=== PATIENT | male | born 1955 | race Caucasian/White ===

== ENCOUNTER 2016-09-30 18:48 | Inpatient (IN) | payer MEDICARE ==
[2016-09-30 18:49] VITALS: BMI 24.3
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
[2016-09-30] MEDS ORDERED: HYDROmorphone 0.5 mg/0.5 ml ISec IVP STA ×2 (19:48→22:40)
[2016-09-30] MEDS ORDERED: HYDROmorphone 1 mg/ml ISec ONE ×2 (19:54→23:00)
[2016-09-30] MEDS ORDERED: Sodium Chloride 0.9% 1,000 ML ONE (19:54)
[2016-09-30 20:05] LABS: BASO % 0.5 % (0.0-2.0); EOS # 0.5 K/uL (0.0-0.7); EOS % 8.6 % (0.0-4.0); HEMATOCRIT 43.2 % (35.0-51.0); LYMPH # 1.6 K/uL (1.0-4.3); LYMPH % 24.7 % (20.0-40.0); MEAN CELL VOLUME 89.3 fL (80.0-94.0); MEAN CORPUSCULAR HEMOGLOBIN 29.8 pg (27.0-31.0); MEAN CORPUSCULAR HGB CONC 33.3 g/dL (33.0-37.0); MEAN PLATELET VOLUME 8.2 fL (7.2-11.7); MONO # 0.7 K/uL (0.0-0.8); MONO % 10.5 % (0.0-10.0); RED CELL DISTRIBUTION WIDTH 14.9 % (11.5-14.5); WHITE BLOOD COUNT 6.3 K/uL (4.8-10.8)
[2016-09-30] MEDS: Sodium Chloride 0.9% 1,000 ML IV SCH (20:05)
[2016-09-30 20:12] LABS: CHLORIDE 99 mmol/L (98-107); POTASSIUM 3.9 mmol/L (3.6-5.2); SODIUM 138 mmol/L (132-148)
[2016-09-30 20:15] LABS: BLOOD UREA NITROGEN 13 mg/dL (9-20); CARBON DIOXIDE 25 mmol/L (22-30); GFR AFRICAN-AMERICAN > 60
[2016-09-30 20:16] LABS: CALCIUM 8.8 mg/dl (8.6-10.4); GLUCOSE,RANDOM 110 mg/dL (75-110)
[2016-09-30 20:35] LABS: VENOUS BLOOD GAS BASE EXCESS 1.7 mmol/L (0.0-2.0); VENOUS BLOOD GAS PCO2 45 mmHg (40-60); VENOUS BLOOD PH 7.39 (7.32-7.43)
[2016-09-30] MEDS ORDERED: Iodixanol 320 MG/ML 100 ML BOTTLE IV ONE ×2 (20:42→21:04)
--- NOTE | 2016-09-30 22:20 | CT ---
EXAM: CT Right Lower Extremity With Intravenous Contrast, Femur. CLINICAL HISTORY: 60 years old, male; Pain; Other: Femur; Prior surgery; Additional info: R thigh pain post thigh RO abscess TECHNIQUE: Axial computed tomography images of the right femur with intravenous contrast. This CT exam was performed using one or more of the following dose reduction techniques: automated exposure control, adjustment of the mA and/or kV according to patient size, and/or use of iterative reconstruction technique. Coronal and sagittal reformatted images were created and reviewed. CONTRAST: 100 mL of [id number] administered intravenously. COMPARISON: There are no prior studies for comparison.Exam Date/Time: 09/30/2016 7:47 PM FINDINGS: Bones/joints: There are degenerative changes in the lower lumbar spine. There is sclerosis about the right sacroiliac joint. There are degenerative changes in the segundo. There are old right ischial and pubic fractures. There is remote amputation of the right femur resection at the proximal diaphysis. There is heterotopic ossification at the amputation site greatest medially. There are multiple surgical clips. There are 2 small areas of enhancement posterior to the femur at the amputation site. More proximal focus measures 5.8 x 4.9 mm, image 19 series 604, image 64 series 605. Distal focus measures 7.5 x 5.71 m, image 12 series 604, image 64 series 605. Soft tissues: There is edema in the skin distal to the stone. There may be an area of ulceration. Vasculature: There are vascular calcifications. Other findings: There is a nonobstructive gas pattern in the pelvis. There is diverticulosis. Urinary bladder is partially distended. Seminal vesicles and prostate are unremarkable. IMPRESSION: Right femoral amputation; too small enhancing foci adjacent to the amputation site may represent small abscesses
[2016-09-30] MEDS ORDERED: Piperacillin/Tazobact 3.375 gm 100 ML IV STA (22:40)
[2016-09-30] MEDS ORDERED: Piperacillin/Tazobact 3.375 gm 100 ML IVPB ONE (23:01)
[2016-10-01] MEDS: Sodium Chloride 0.9% 1,000 ML IV SCH ×3 (05:25→19:21)
[2016-10-01] MEDS: HYDROmorphone 1 mg/ml ISec IVP PRN ×4 (06:21→21:47)
--- NOTE | 2016-10-01 09:30 | CP.PCM.PN ---
Objective - Vital Signs/Intake and Output Vital Signs (last 24 hours): Temp Pulse Resp BP Pulse Ox 97.9 F 66 20 168/94 H 96 10/01/16 08:00 10/01/16 08:00 10/01/16 08:00 10/01/16 08:00 10/01/16 08:00 - Medications Medications: Current Medications Hydromorphone HCl (Dilaudid) 1 mg IVP Q4H PRN PRN Reason: Pain, severe (8-10) Stop: 10/01/16 13:49 Last Admin: 10/01/16 06:21 Dose: 1 mg Sodium Chloride (Sodium Chloride 0.9%) 1,000 mls @ 100 mls/hr IV .Q10H [facility] Last Admin: 10/01/16 05:25 Dose: 100 mls/hr Influenza Virus Vaccine (Afluria) 45 mcg IM .ONCE ONE Stop: 10/03/16 14:01 Pneumococcal Polyvalent Vaccine (Pneumovax 23 Vaccine) 0.5 ml IM .ONCE ONE Stop: 10/03/16 14:01
[2016-10-01] MEDS ORDERED: Oxycodone/Acetaminophen 5/325 mg Tab PO PRN (11:43)
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
--- NOTE | 2016-10-01 12:48 | RAD ---
PROCEDURE: Right femur HISTORY: pain ho r aka COMPARISON: Not available TECHNIQUE: Two views of the right femur are submitted. FINDINGS: The patient is status post right [id number] amputation. There is no acute osseous fracture. The hip is grossly intact. IMPRESSION: No acute fracture. Status post right above knee amputation.
[2016-10-01] MEDS: Enoxaparin 40 mg Syringe SC SCH (13:01)
[2016-10-01] MEDS: Piperacill/Tazo 3.375gm in Dex 50 ML IVPB SCH ×2 (13:09→19:22)
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
[2016-10-01] MEDS: (Novolin R) Insulin Human Regular 100 units/ml vial SC SCH ×2 (17:44→22:13)
[2016-10-02] MEDS: Piperacill/Tazo 3.375gm in Dex 50 ML IVPB SCH ×4 (05:22→18:40)
[2016-10-02] MEDS: (Novolin R) Insulin Human Regular 100 units/ml vial SC SCH ×4 (08:10→21:42)
[2016-10-02 08:11] LABS: BASO % 0.6 % (0.0-2.0); EOS # 0.7 K/uL (0.0-0.7); EOS % 10.6 % (0.0-4.0); HEMATOCRIT 41.9 % (35.0-51.0); LYMPH # 1.2 K/uL (1.0-4.3); LYMPH % 18.6 % (20.0-40.0); MEAN CORPUSCULAR HEMOGLOBIN 30.6 pg (27.0-31.0); MEAN CORPUSCULAR HGB CONC 34.4 g/dL (33.0-37.0); MEAN PLATELET VOLUME 8.9 fL (7.2-11.7); MONO # 0.6 K/uL (0.0-0.8); MONO % 9.5 % (0.0-10.0); RED CELL DISTRIBUTION WIDTH 14.9 % (11.5-14.5); WHITE BLOOD COUNT 6.4 K/uL (4.8-10.8)
[2016-10-02 08:21] LABS: CHLORIDE 99 mmol/L (98-107); POTASSIUM 3.7 mmol/L (3.6-5.2); SODIUM 138 mmol/L (132-148)
[2016-10-02 08:23] LABS: ALB/GLOB RATIO 0.9 (1.0-2.1); BILIRUBIN,TOTAL 0.8 mg/dL (0.2-1.3); CARBON DIOXIDE 25 mmol/L (22-30); CHOLESTEROL 147 mg/dL (0-199); GFR AFRICAN-AMERICAN > 60; TOTAL PROTEIN 7.5 g/dL (6.3-8.3)
[2016-10-02 08:24] LABS: ALKALINE PHOSPHATASE 93 U/L (38-126); ALT/SGPT 58 U/L (21-72); AST/SGOT 67 U/L (17-59); BLOOD UREA NITROGEN 10 mg/dL (9-20); CALCIUM 8.8 mg/dl (8.6-10.4); GLUCOSE,RANDOM 90 mg/dL (75-110)
[2016-10-02] MEDS: Enoxaparin 40 mg Syringe SC SCH (10:15)
--- NOTE | 2016-10-02 12:09 | CP.PCM.PN ---
Subjective - Date & Time of Evaluation Date of Evaluation: 10/02/16 Time of Evaluation: 12:00 - Subjective Subjective: Seen by surgery, no need for drainage of abscess, on IV antibiotic follow-up with infectious disease Objective - Vital Signs/Intake and Output Vital Signs (last 24 hours): Temp Pulse Resp BP Pulse Ox 98.8 F 81 16 131/94 H 96 10/02/16 08:08 10/02/16 08:08 10/02/16 08:08 10/02/16 08:08 10/02/16 08:08 Intake and Output: 10/02/16 10/02/16 06:59 18:59 Intake Total 1890 Balance 1890 - Medications Medications: Current Medications Acetaminophen (Tylenol 325mg Tab) 650 mg PO Q6 PRN PRN Reason: Fever >100.4 F Docusate Sodium (Colace) 100 mg PO BID [facility] Last Admin: 10/02/16 10:16 Dose: 100 mg Enoxaparin Sodium (Lovenox) 40 mg SC DAILY [facility] Last Admin: 10/02/16 10:15 Dose: 40 mg Hydromorphone HCl (Dilaudid) 3 mg IVP Q6H PRN PRN Reason: Pain, severe (8-10) Last Admin: 10/02/16 10:15 Dose: 3 mg Sodium Chloride (Sodium Chloride 0.9%) 1,000 mls @ 100 mls/hr IV .Q10H [facility] Last Admin: 10/01/16 19:21 Dose: 100 mls/hr Piperacillin Sod/Tazobactam Sod (Zosyn 3.375 Gm Iv Premix) 50 mls @ 100 mls/hr IVPB Q6H [facility] Last Admin: 10/02/16 05:22 Dose: 100 mls/hr Influenza Virus Vaccine (Afluria) 45 mcg IM .ONCE ONE Stop: 10/03/16 14:01 Insulin Human Regular (Novolin R) 0 unit SC ACHS [facility] PRN Reason: Protocol Last Admin: 10/02/16 08:10 Dose: Not Given Metformin HCl (Glucophage) 500 mg PO BID [facility] Last Admin: 10/02/16 10:16 Dose: 500 mg Nicotine (Nicoderm Cq) 1 patch TD DAILY [facility] Last Admin: 10/02/16 10:17 Dose: 1 patch Ondansetron HCl (Zofran Inj) 4 mg IVP Q6 PRN PRN Reason: Nausea/Vomiting Oxycodone/Acetaminophen (Percocet 5/325 Mg Tab) 1 tab PO Q4 PRN PRN Reason: Pain, moderate (4-7) Stop: 10/04/16 11:44 Pneumococcal Polyvalent Vaccine (Pneumovax 23 Vaccine) 0.5 ml IM .ONCE ONE Stop: 10/03/16 14:01 Sucralfate (Carafate Tab) 1 gm PO BID [facility] Last Admin: 10/02/16 10:16 Dose: 1 gm - Labs Labs: 10/02/16 08:02 10/02/16 08:02 - Constitutional Appears: Non-toxic - Head Exam Head Exam: ATRAUMATIC - Eye Exam Eye Exam: EOMI - ENT Exam ENT Exam: Mucous Membranes Moist - Neck Exam Neck Exam: absent: Lymphadenopathy, Thyromegaly - Respiratory Exam Respiratory Exam: Clear to Ausculation Bilateral. absent: Rales - Cardiovascular Exam Cardiovascular Exam: REGULAR RHYTHM, Murmur - GI/Abdominal Exam GI & Abdominal Exam: Normal Bowel Sounds. absent: Organomegaly - Rectal Exam Rectal Exam: Deferred - Extremities Exam Extremities Exam: Normal Capillary Refill. absent: Calf Tenderness - Neurological Exam Neurological Exam: Alert, Oriented x3 - Psychiatric Exam Psychiatric exam: Normal Mood - Skin Skin Exam: Dry Assessment and Plan (1) Abscess Status: Acute (2) Alcohol abuse Status: Chronic (3) Diabetes 1.5, managed as type 2 Status: Chronic
[2016-10-02] MEDS: Sodium Chloride 0.9% 1,000 ML IV SCH ×3 (12:20→21:42)
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
[2016-10-02 16:14] VITALS: RESP 20
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
[2016-10-03] MEDS: Piperacill/Tazo 3.375gm in Dex 50 ML IVPB SCH ×4 (00:22→18:11)
[2016-10-03] MEDS: Sodium Chloride 0.9% 1,000 ML IV SCH ×2 (07:24→08:25)
[2016-10-03] MEDS: (Novolin R) Insulin Human Regular 100 units/ml vial SC SCH ×4 (08:03→22:54)
[2016-10-03] MEDS: Enoxaparin 40 mg Syringe SC SCH (10:21)
--- NOTE | 2016-10-03 12:19 | CP.PCM.PN ---
Subjective - Date & Time of Evaluation Date of Evaluation: 10/03/16 Time of Evaluation: 09:00 - Subjective Subjective: less pain for mri if he can tolerate ? may need bone scan Objective - Vital Signs/Intake and Output Vital Signs (last 24 hours): Temp Pulse Resp BP Pulse Ox 98.2 F 73 20 148/87 97 10/03/16 07:00 10/03/16 07:00 10/03/16 07:00 10/03/16 07:00 10/03/16 07:00 Intake and Output: 10/03/16 10/03/16 06:59 18:59 Intake Total 1090 900 Balance 1090 900 - Medications Medications: Current Medications Acetaminophen (Tylenol 325mg Tab) 650 mg PO Q6 PRN PRN Reason: Fever >100.4 F Docusate Sodium (Colace) 100 mg PO BID [facility] Last Admin: 10/03/16 10:20 Dose: 100 mg Enoxaparin Sodium (Lovenox) 40 mg SC DAILY [facility] Last Admin: 10/03/16 10:21 Dose: 40 mg Hydromorphone HCl (Dilaudid) 3 mg IVP Q6H PRN PRN Reason: Pain, severe (8-10) Last Admin: 10/03/16 10:21 Dose: 3 mg Sodium Chloride (Sodium Chloride 0.9%) 1,000 mls @ 100 mls/hr IV .Q10H [facility] Last Admin: 10/03/16 08:25 Dose: Not Given Piperacillin Sod/Tazobactam Sod (Zosyn 3.375 Gm Iv Premix) 50 mls @ 100 mls/hr IVPB Q6H [facility] Last Admin: 10/03/16 11:47 Dose: 100 mls/hr Influenza Virus Vaccine (Afluria) 45 mcg IM .ONCE ONE Stop: 10/03/16 14:01 Insulin Human Regular (Novolin R) 0 unit SC ACHS [facility] PRN Reason: Protocol Last Admin: 10/03/16 12:07 Dose: Not Given Metformin HCl (Glucophage) 500 mg PO BID [facility] Last Admin: 10/03/16 10:20 Dose: 500 mg Nicotine (Nicoderm Cq) 1 patch TD DAILY [facility] Last Admin: 10/03/16 10:20 Dose: 1 patch Ondansetron HCl (Zofran Inj) 4 mg IVP Q6 PRN PRN Reason: Nausea/Vomiting Oxycodone/Acetaminophen (Percocet 5/325 Mg Tab) 1 tab PO Q4 PRN PRN Reason: Pain, moderate (4-7) Stop: 10/04/16 11:44 Pneumococcal Polyvalent Vaccine (Pneumovax 23 Vaccine) 0.5 ml IM .ONCE ONE Stop: 10/03/16 14:01 Sucralfate (Carafate Tab) 1 gm PO BID [facility] Last Admin: 10/03/16 10:20 Dose: 1 gm - Labs Labs: 10/02/16 08:02 10/02/16 08:02
--- NOTE | 2016-10-03 12:28 | CP.PCM.PN ---
Subjective - Date & Time of Evaluation Date of Evaluation: 10/03/16 Time of Evaluation: 12:00 - Subjective Subjective: Seen by infectious disease, MRI of the leg was ordered, on antibiotic, improved pain, seen by psych no need for detox Objective - Vital Signs/Intake and Output Vital Signs (last 24 hours): Temp Pulse Resp BP Pulse Ox 98.2 F 73 20 148/87 97 10/03/16 07:00 10/03/16 07:00 10/03/16 07:00 10/03/16 07:00 10/03/16 07:00 Intake and Output: 10/03/16 10/03/16 06:59 18:59 Intake Total 1090 900 Balance 1090 900 - Medications Medications: Current Medications Acetaminophen (Tylenol 325mg Tab) 650 mg PO Q6 PRN PRN Reason: Fever >100.4 F Docusate Sodium (Colace) 100 mg PO BID [facility] Last Admin: 10/03/16 10:20 Dose: 100 mg Enoxaparin Sodium (Lovenox) 40 mg SC DAILY [facility] Last Admin: 10/03/16 10:21 Dose: 40 mg Hydromorphone HCl (Dilaudid) 3 mg IVP Q6H PRN PRN Reason: Pain, severe (8-10) Last Admin: 10/03/16 10:21 Dose: 3 mg Sodium Chloride (Sodium Chloride 0.9%) 1,000 mls @ 100 mls/hr IV .Q10H [facility] Last Admin: 10/03/16 08:25 Dose: Not Given Piperacillin Sod/Tazobactam Sod (Zosyn 3.375 Gm Iv Premix) 50 mls @ 100 mls/hr IVPB Q6H [facility] Last Admin: 10/03/16 11:47 Dose: 100 mls/hr Influenza Virus Vaccine (Afluria) 45 mcg IM .ONCE ONE Stop: 10/03/16 14:01 Insulin Human Regular (Novolin R) 0 unit SC ACHS [facility] PRN Reason: Protocol Last Admin: 10/03/16 12:07 Dose: Not Given Ketoconazole (Nizoral) 1 gm TOP BID [facility] Metformin HCl (Glucophage) 500 mg PO BID [facility] Last Admin: 10/03/16 10:20 Dose: 500 mg Nicotine (Nicoderm Cq) 1 patch TD DAILY [facility] Last Admin: 10/03/16 10:20 Dose: 1 patch Ondansetron HCl (Zofran Inj) 4 mg IVP Q6 PRN PRN Reason: Nausea/Vomiting Oxycodone/Acetaminophen (Percocet 5/325 Mg Tab) 1 tab PO Q4 PRN PRN Reason: Pain, moderate (4-7) Stop: 10/04/16 11:44 Pneumococcal Polyvalent Vaccine (Pneumovax 23 Vaccine) 0.5 ml IM .ONCE ONE Stop: 10/03/16 14:01 Sucralfate (Carafate Tab) 1 gm PO BID [facility] Last Admin: 10/03/16 10:20 Dose: 1 gm - Labs Labs: 10/02/16 08:02 10/02/16 08:02 - Constitutional Appears: Non-toxic - Head Exam Head Exam: ATRAUMATIC - Eye Exam Eye Exam: EOMI - ENT Exam ENT Exam: Mucous Membranes Moist - Neck Exam Neck Exam: absent: Lymphadenopathy, Thyromegaly - Cardiovascular Exam Cardiovascular Exam: REGULAR RHYTHM. absent: Murmur - GI/Abdominal Exam GI & Abdominal Exam: Normal Bowel Sounds. absent: Organomegaly - Rectal Exam Rectal Exam: Deferred - Neurological Exam Neurological Exam: Alert, Oriented x3 - Psychiatric Exam Psychiatric exam: Normal Mood - Skin Skin Exam: Dry Assessment and Plan (1) Abscess Status: Acute (2) Alcohol abuse Status: Chronic (3) Diabetes 1.5, managed as type 2 Status: Chronic
[2016-10-03] MEDS ORDERED: Influenza Virus Vaccine 45 mcg/0.5 ml Syr IM ONE (14:00)
[2016-10-03] MEDS ORDERED: Pneumococcal 23-Valent Vaccine IM ONE (14:00)
[2016-10-04] MEDS: Piperacill/Tazo 3.375gm in Dex 50 ML IVPB SCH ×3 (00:21→14:03)
[2016-10-04 00:38] VITALS: O2SAT 95
[2016-10-04] MEDS: (Novolin R) Insulin Human Regular 100 units/ml vial SC SCH ×2 (07:37→12:10)
[2016-10-04] MEDS ORDERED: HYDROmorphone 1 mg/ml ISec IVP PRN (09:57)
[2016-10-04] MEDS: Enoxaparin 40 mg Syringe SC SCH (10:40)
--- NOTE | 2016-10-04 12:19 | CP.PCM.PN ---
Subjective - Date & Time of Evaluation Date of Evaluation: 10/04/16 Time of Evaluation: 12:00 - Subjective Subjective: Still with pain, awaiting MRI, follow-up with infectious disease Objective - Vital Signs/Intake and Output Vital Signs (last 24 hours): Temp Pulse Resp BP Pulse Ox 97.7 F 84 20 154/87 H 95 10/04/16 00:00 10/04/16 00:00 10/04/16 00:00 10/04/16 00:00 10/04/16 00:00 - Medications Medications: Current Medications Acetaminophen (Tylenol 325mg Tab) 650 mg PO Q6 PRN PRN Reason: Fever >100.4 F Docusate Sodium (Colace) 100 mg PO BID [facility] Last Admin: 10/04/16 10:41 Dose: 100 mg Enoxaparin Sodium (Lovenox) 40 mg SC DAILY [facility] Last Admin: 10/04/16 10:40 Dose: 40 mg Hydromorphone HCl (Dilaudid) 3 mg IVP Q6H PRN PRN Reason: Pain, severe (8-10) Piperacillin Sod/Tazobactam Sod (Zosyn 3.375 Gm Iv Premix) 50 mls @ 100 mls/hr IVPB Q6H [facility] Last Admin: 10/04/16 05:23 Dose: 100 mls/hr Insulin Human Regular (Novolin R) 0 unit SC ACHS [facility] PRN Reason: Protocol Last Admin: 10/04/16 12:10 Dose: Not Given Ketoconazole (Nizoral) 1 gm TOP BID [facility] Last Admin: 10/03/16 18:12 Dose: 1 applic Metformin HCl (Glucophage) 500 mg PO BID [facility] Last Admin: 10/04/16 10:41 Dose: 500 mg Nicotine (Nicoderm Cq) 1 patch TD DAILY [facility] Last Admin: 10/04/16 10:40 Dose: 1 patch Ondansetron HCl (Zofran Inj) 4 mg IVP Q6 PRN PRN Reason: Nausea/Vomiting Sucralfate (Carafate Tab) 1 gm PO BID [facility] Last Admin: 10/04/16 10:41 Dose: 1 gm - Labs Labs: 10/02/16 08:02 10/02/16 08:02 - Constitutional Appears: Non-toxic - Head Exam Head Exam: ATRAUMATIC - Eye Exam Eye Exam: EOMI - ENT Exam ENT Exam: Mucous Membranes Moist - Neck Exam Neck Exam: absent: Lymphadenopathy, Thyromegaly - Respiratory Exam Respiratory Exam: Clear to Ausculation Bilateral. absent: Rales - Cardiovascular Exam Cardiovascular Exam: REGULAR RHYTHM - GI/Abdominal Exam GI & Abdominal Exam: Normal Bowel Sounds. absent: Organomegaly - Rectal Exam Rectal Exam: Deferred - Extremities Exam Extremities Exam: Normal Capillary Refill. absent: Calf Tenderness, Tenderness - Neurological Exam Neurological Exam: Alert, Oriented x3 - Psychiatric Exam Psychiatric exam: Anxious, Normal Mood - Skin Skin Exam: Dry Assessment and Plan (1) Abscess Status: Acute (2) Alcohol abuse Status: Chronic (3) Diabetes 1.5, managed as type 2 Status: Chronic
--- NOTE | 2016-10-04 13:34 | NM ---
PROCEDURE: Three-phase bone scan HISTORY: Osteomyelitis suspected stump right lower extremity. COMPARISON: 09/30/2016 right femur radiographs. TECHNIQUE: Radionuclide dose: 24.3 Tc99m MDP Site of administration: Left upper extremity venous access Technique: Three-phase bone scan attention proximal right femur. FINDINGS: Flow component: Increased flow to the right thigh consistent with edematous changes on plain film radiographs. Blood pool component: No focal accumulation of radionuclide within the remaining right femur/stump region. Delayed images at 3:00: Mildly increased retention of radionuclide distal right femur IMPRESSION: Findings consistent with cellulitis without scintigraphic evidence of acute osseous process. Specifically no evidence of osteomyelitis proximal right femur/ surgical stump region.
--- NOTE | 2016-10-04 15:16 | PCM.PYCHPN ---
Psychiatric Progress Note - Psychiatric Progress Note Patient seen today, length of contact: 17 min Patient Chief Complaint: "I was very anxious" Problems Identified/Issues Discussed: The patient is seen, chart reviewed and case discussed. He was referred to today saying "I want to live like this" However, when seen by the commercial real estate underwriter he was in good spirits again and said that he had said that b/c he was in pain. He feels better now but sometimes feels down and anxious He says he will take a medication and he also asked for a note to help him keep his housing. he is clearly future oriented and denies all SI, SP etc. Support given Medication Change: Yes (add lexapro and prn ativan) Medical Record Reviewed: Yes Mental Status Examination - Cognitive Function Orientation: Person, Place, Situation, Time Memory: Intact Attention: WNL Concentration: Poor Association: WNL Fund of Knowledge: WNL - Mood Mood: Depressed (mild), Anxious - Affect Affect: Constricted - Speech Speech: Appropriate - Formal Thought Process Formal Thought Process: No Impairment - Suicidal Ideation Suicidal Ideation: No - Homicidal Ideation Homicidal Ideation: No Goal/Treatment Plan - Goal/Treatment Plan Need for Continued Stay: Discharge may exacerbated symptoms, Severe functional impairment Progress Toward Problem(s) and Goals/Treatment Plan: No need for detox Support and psychoed AA referral Monitor sxs lexapro 5 mg/d ativan 1 mg po q8h prn severe anxiety
[2016-10-04 16:50] VITALS: BP 135/84; PULSE 87; TEMP 97.8
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
[2016-10-04] MEDS ORDERED: (Novolin R) Insulin Human Regular 100 units/ml vial SC SCH (22:00)
[2016-10-05] MEDS ORDERED: Enoxaparin 40 mg Syringe SC SCH (10:00)
== END 2016-10-04 18:58 | disposition home or self-care (01) | DRG 603 ==
LOC: C.ER 18:48 → C.9OBSV 21:08 → OBSVTOIN 22:46 → C.9E 22:58 → C.5T 10-01 02:51 → UNDODISIN 10-04 16:36
PROVIDERS: ADMIT Internal Medicine Cardiovascular Disease; ATTEND Internal Medicine Cardiovascular Disease
DX: L02.415 Cutaneous abscess of right lower limb (principal); G54.6 Phantom limb syndrome with pain; Z89.611 Acquired absence of right leg above knee; E11.9 Type 2 diabetes mellitus without complications; I10 Essential (primary) hypertension; F10.10 Alcohol abuse, uncomplicated; F41.9 Anxiety disorder, unspecified; F17.210 Nicotine dependence, cigarettes, uncomplicated; Z79.4 Long term (current) use of insulin; S06.9X0S Unspecified intracranial injury without loss of consciousness, sequela; V89.2XXS Person injured in unspecified motor-vehicle accident, traffic, sequela; Z91.81 History of falling